=== PATIENT | female | born 1995 | race Two or more races ===

== ENCOUNTER 2020-06-26 05:46 | Day surgery (SDC) | payer OTHER | END 2020-06-26 13:20 | disposition home or self-care (01) | LOC: CIR.AMB 05:46 | PROVIDERS: ATTEND Obstetrics & Gynecology | DX: N72 Inflammatory disease of cervix uteri (principal); Q52.3 Imperforate hymen; Z20.822 Contact with and (suspected) exposure to COVID-19 ==